=== PATIENT | male | born 1970 | race Two or more races ===

== ENCOUNTER 2021-02-14 01:27 | Emergency (ER) | payer OTHER ==
[~2021-02-14] VITALS: Ht 154.9 cm; Wt 75.0 kg
[2021-02-14] MEDS ORDERED: PENI250S (01:38)
[2021-02-14] MEDS ORDERED: CLIN300P10 (01:38)
[2021-02-14] MEDS ORDERED: phenytoin sod ER 100mg capsule PO ONE (01:55)
[2021-02-14 02:10] VITALS: BP 130/91
== END 2021-02-14 02:53 ==
LOC: ER 01:28
DX: F15.90 Other stimulant use, unspecified, uncomplicated (principal); R41.82 Altered mental status, unspecified; G40.909 Epilepsy, unspecified, not intractable, without status epilepticus; Z88.0 Allergy status to penicillin; Z88.1 Allergy status to other antibiotic agents; Z88.8 Allergy status to other drugs, medicaments and biological substances; Z79.2 Long term (current) use of antibiotics
CPT/HCPCS: 93005; 99284